=== PATIENT | female | born 1960 | race Caucasian/White ===

== ENCOUNTER 2018-02-13 17:52 | Emergency (ER) | payer OTHER ==
--- NOTE | 2018-02-13 19:32 | UC ---
Respiratory Complaint HPI - HPI Summary HPI Summary: 1 week of cough that is keeping her up at night along with nasal congestion, fatigue and sore throat. Patient states she is coughing so much her stomach is hurting. No nausea/vomiting. No fever. 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 Negative: Dyspnea, Fever, Wheezing - Allergies/Home Medications Allergies/Adverse Reactions: Allergies Allergy/AdvReac Type Severity Reaction Status Date / Time No Known Allergies Allergy Verified 02/13/18 18:28 Home Medications: Home Medications Dextromethorphan Polistirex [Delsym] 30 mg PO Q12H 02/13/18 [History Confirmed 02/13/18] Dm/Acetaminophen/Doxylamine [Vicks Nyquil Cold-Flu Liquid] 1 liq PO Q6H [History Confirmed 02/13/18] Dm/PE/Acetaminophen/Doxylamine [Tylenol Cold Max Night Liquid] 240 ml PO Q6H 02/19 [History Confirmed 02/13/18] PMH/Surg Hx/FS Hx/Imm Hx Psychological History: Depression - Surgical History Surgical History: None - Family History Known Family History: Positive: Non-Contributory - Social History Alcohol Use: None Substance Use Type: None Smoking Status (MU): Never Smoked Tobacco Review of Systems All Other Systems Reviewed And Are Negative: Yes Constitutional: Positive: Fatigue. Negative: Fever ENT: Positive: Sore Throat, Nasal Discharge Respiratory: Positive: Cough. Negative: Shortness Of Breath Cardiovascular: Positive: Negative Gastrointestinal: Positive: Abdominal Pain Neurological: Positive: Negative Physical Exam Triage Information Reviewed: Yes Appearance: Well-Appearing, No Pain Distress, Well-Nourished Vital Signs: Initial Vital Signs Temp 98.4 F 02/13/18 18:21 Pulse 82 02/13/18 18:21 Resp 16 02/13/18 18:21 BP 146/70 02/13/18 18:21 Pulse Ox 99 02/13/18 18:21 Vital Signs Reviewed: Yes Eyes: Positive: Conjunctiva Clear ENT: Positive: Hearing grossly normal, Pharynx normal, TMs normal Neck: Positive: Supple, Nontender, No Lymphadenopathy Respiratory: Positive: No respiratory distress, No accessory muscle use, Other: - OCCASIONAL COARSE BREATH SOUND LEFT UPPER LOBE Cardiovascular Exam: Normal Abdomen Description: Positive: Soft Musculoskeletal: Positive: No Edema Neurological: Positive: Alert Psychological: Positive: Age Appropriate Behavior Skin: Negative: Rashes UC Diagnostic Evaluation - Laboratory O2 Sat by Pulse Oximetry: 99 - Radiology Radiology Interpretation Completed By: ED Physician Summary of Radiographic Findings: CXR UNREMARKABLE Respiratory Course/Dx - Differential Dx/Diagnosis Provider Diagnosis: Bronchitis Discharge - Sign-Out/Discharge Documenting (check all that apply): Patient Departure All imaging exams completed and their final reports reviewed: No - Discharge Plan Condition: Stable Disposition: HOME Prescriptions: Azithromycin 500 mg PO DAILY #5 tab Codeine Phosphate/Guaifenesin [Codeine-Guaifen 10-100 mg/5 ml] 5 - 10 ml PO Q6H PRN #150 ml MDD 40ML PRN Reason: Cough Patient Education Materials: Acute Bronchitis (ED) Referrals: Damaris Gallardo MD [Primary Care Provider] - If Needed Additional Instructions: CHEST XRAY UNREMARKABLE ON MY INITIAL INTERPRETATION. WE WILL CALL YOU TOMORROW IF THE RADIOLOGY READ DIFFERS. YOUR SYMPTOMS MAY BE VIRALLY MEDIATED BUT GIVEN THE LENGTH OF TIME YOU HAVE BEEN ILL WE WILL COVER YOU WITH ANTIBIOTICS. IF YOU START THE MEDICINE BE SURE TO TAKE IT FOR THE FULL COURSE. REST, HYDRATE, OTC MEDS NEEDED. WILL ALSO TREAT WITH COUGH MEDICINE. SEEK FOLLOW-UP WITH YOUR PCP IF YOU ARE NOT IMPROVING OVER THE NEXT 1-2 WEEKS. GO TO ED WITHOUT FAIL IF YOU DEVELOP WORSENING COUGH, SHORTNESS OF BREATH, FEVER , CHEST PAIN, NAUSEA, SWEATS, DIZZINESS OR ANY OTHER CONCERNING SYMPTOMS. - Billing Disposition and Condition Condition: STABLE Disposition: Home
[2018-02-13 20:38] VITALS: BP 120/85
--- NOTE | 2018-02-14 10:55 | UC ---
- Progress Note Progress Note: Chest x-ray has been read from February 13, 2018. There was no pneumonia seen on chest x-ray. Patient treated with a azithromycin after an unremarkable read by the provider on February 13, 2018. There is no x-ray discrepancy. Course/Dx - Diagnoses Provider Diagnoses: Bronchitis Discharge - Sign-Out/Discharge Documenting (check all that apply): Patient Departure All imaging exams completed and their final reports reviewed: Yes - Discharge Plan Condition: Stable Disposition: HOME Prescriptions: Azithromycin 500 mg PO DAILY #5 tab Codeine Phosphate/Guaifenesin [Codeine-Guaifen 10-100 mg/5 ml] 5 - 10 ml PO Q6H PRN #150 ml MDD 40ML PRN Reason: Cough Patient Education Materials: Acute Bronchitis (ED) Referrals: Damaris Gallardo MD [Primary Care Provider] - If Needed Additional Instructions: CHEST XRAY UNREMARKABLE ON MY INITIAL INTERPRETATION. WE WILL CALL YOU TOMORROW IF THE RADIOLOGY READ DIFFERS. YOUR SYMPTOMS MAY BE VIRALLY MEDIATED BUT GIVEN THE LENGTH OF TIME YOU HAVE BEEN ILL WE WILL COVER YOU WITH ANTIBIOTICS. IF YOU START THE MEDICINE BE SURE TO TAKE IT FOR THE FULL COURSE. REST, HYDRATE, OTC MEDS NEEDED. WILL ALSO TREAT WITH COUGH MEDICINE. SEEK FOLLOW-UP WITH YOUR PCP IF YOU ARE NOT IMPROVING OVER THE NEXT 1-2 WEEKS. GO TO ED WITHOUT FAIL IF YOU DEVELOP WORSENING COUGH, SHORTNESS OF BREATH, FEVER , CHEST PAIN, NAUSEA, SWEATS, DIZZINESS OR ANY OTHER CONCERNING SYMPTOMS. - Billing Disposition and Condition Condition: STABLE Disposition: Home
== END 2018-02-13 20:25 | disposition home or self-care (01) ==
LOC: UCEAST 17:52
DX: J40 Bronchitis, not specified as acute or chronic (principal)
CPT/HCPCS: 71046; 99202; G0463